=== PATIENT | male | born 1965 | race Caucasian/White ===

== ENCOUNTER 2020-10-03 09:00 | Outpatient (RCR) | payer MEDICARE, SELFPAY ==
--- NOTE | 2020-09-09 09:30 | OTOPEVAL ---
OCCUPATIONAL THERAPY INITIAL EVALUATION REPORT 09/09/20 Thank you for referring Ludwig Hendrickson to [facility].? The patient is scheduled to be seen for therapy? 2x/week for 5 weeks. Please review, sign, date and return this plan of care UBALDO. I agree with and certify that the following plan of care is medically necessary. Referring Physician Date Referring Provider: Yaron Guillaume MD *OT Outpatient Evaluation Therapy Assessment Status Assessment Status Assessment Status Evaluation Outpatient Past Medical History Past Medical History Source of Past Medical History Patient,Recalled from Previous Visit, Confirmed with Patient /Family Neurological History Hx Neurological Disorders No Significant History Cardiovascular History Hx Myocardial Infarction Yes Hx Other Cardiac Disorders Yes: chest contusion with injury tree limb hitting him Respiratory History Hx Respiratory Disorders No Significant History Gastrointestinal History Hx Gastrointestinal Disorders No Significant History Musculoskeletal History Hx Back Injury Yes: with fall fracture T3, L 4&5; sacrum fx- no surg Hx Back Pain Yes: with fall, sternum fracture, rib fx Hx Fractures Yes: left hand metacarpal fx 05/2020 Hx Orthopedic Surgery Yes: R hip ORIF;R heel 4x surg Feb 27-infection clean out Hx Other Musculoskeletal Disorders Yes: cutting down tree, limb hit him May 20, 2017;had LA,R hip fx,Rknee,Lknee HEENT History Hx Other HEENT Disorders Yes: visual changes with head injury-glass to correct Integumentary History Hx Other Skin Disorders Yes: small dark brown scab R lat ankle ~ 1.5 cm Reproductive History Hx Reproductive Disorders No Significant History Other History Hx Recent Acute Infection Yes: Feb 27:port placed,IV antibiotics for calcaneal fx- staph Evaluation Information Problem Diagnosis Left 3rd and 4th MC shaft fractures Onset 06/22/2020 Cause Fall Subjective Information Patient states he fell in the Query Text:As Reported By Patient/ bathroom hitting his hand on Family the shower, causing his fingers to hyperextend at the MCP joints. X-rays showed 3rd and 4th metacarpal shaft fractures. He declined surgical fixation of the
--- NOTE | 2020-10-03 09:37 | OTOPEVAL ---
OCCUPATIONAL THERAPY RE-EVALUATION REPORT & D/C NOTE 10/03/20 Patient has made excellent progress with left hand ROM and functional use since beginning therapy 3 weeks ago. He reports very little functional limitations and no pain. He is currently independent with HEP to continue to fine-tune ROM and strength and is ready for discharge. Please refer to report below for more details and ROM measurements. D/C today with patient independent with all materials. Thank you for referring Ludwig Hendrickson to [facility].?Please review, sign, date and return this plan of care UBALDO. I agree with and certify that the following plan of care is medically necessary. Referring Physician Date Referring Provider: Yaron Guillaume MD *OT Outpatient Evaluation Evaluation Information Problem Diagnosis Left 3rd and 4th MC shaft fractures Onset 06/22/2020 Cause Fall Additional Evaluation Detail Ludwig has participated in the initial OT evaluation and 4 subsequent treatment sessions. Initially he was scheduled for 2x/week for 5 weeks, however, he made such good progress that he was decreased to 1x/week and today the re-evaluation was done (2 weeks early) because he has met therapy goals and is independent with all materials. Today is 14 weeks post injury. Subjective Information Patient states he has returned Query Text:As Reported By Patient/ to doing all ADL activities. Family He reports no functional limitations, except he has not tried any heavy/strenuous lifting. He has returned to lifting moderatly heavy items like pots/pans and laundry baskets. He states that any gross gripping tasks have improved to 90% normal ( opening jars, etc). He reports that his strength is returning and he is able to manager electrical and hold objects without dropping them. QuickDash: improved from 56.8 to 4.5 Pain Assessment Timing of Pain Assessment Timing of Pain Assessment Pre-Treatment Self Report Self Report Pain Level 0 Pain Score Pain Score 0: Self Report Additional Pain Score Comments Patient repor
== END 2020-10-06 07:52 | disposition home or self-care (01) ==
LOC: ANHOT 09:00
PROVIDERS: PCP Nurse Practitioner Family
DX: S62.339D Displaced fracture of neck of unspecified metacarpal bone, subsequent encounter for fracture with routine healing (principal)
CPT/HCPCS: 97018; 97035; 97110; 97140; 97165